=== PATIENT | female | born 1960 | race Caucasian/White ===

== ENCOUNTER → 2016-12-26 | Outpatient (CLI) | payer OTHER ==
[~2016-12-26] MED LIST: HYDROCODONE-AP1 EAC6 PO; IBUPROFEN 200200 M1 PO; LEVOXYL75 MCG PO; MACRODANTIN50 M1 PO; MULTIVITAMINS PO; PROTONIX40 M2 PO; TOPROL XL50 MG PO; VAGIFEM10 MCG VG; VENTOLIN HFA 1818 GM INH; VICODIN 5-3001 EACH PO
== END ==
LOC: RAD 01:03
DX: Z12.31 Encounter for screening mammogram for malignant neoplasm of breast (principal)

== ENCOUNTER 2017-04-18 11:39 | Emergency (ER) | payer OTHER ==
[~2017-04-18] VITALS: Ht 165.1 cm; Wt 78.0 kg
--- NOTE | ~2017-04-18 | EKG ---
[place] [address] [facility] [place] [address] ELECTROCARDIOGRAM REPORT Name: TRINA DEAN [id number] Admission: 04/18/17 Attend Phys: Discharge: 04/18/17 Date of : 56 Report #: [id number] THIS REPORT FOR: //name// [facility] ED Test Date: 2017-04-18 Test Time: 11:46:45 Pat Name: TRINA DEAN Department: Room: Gender: F Corporate Consultant: : 1960 Requested By: Xiomara Brady Order Number: [id number] MD: Edwin Youngblood Measurements Intervals [place] Rate: 84 P: 19 [place]: 167 QRS: 9 QRSD: 94 T: 4 QT: 376 QTc: 445 Interpretive Statements Sinus rhythm Nonspecific ST segment abnormality Compared to ECG 04/25/2014 08:42:15 Sinus bradycardia no longer present Electronically Signed On 04-20-2017 15:11:46 RETREAD OPERATOR by Edwin Youngblood [email or web address] <ELECTRONICALLY SIGNED> By: Edwin Youngblood MD, [facility] 04/20/17 1511 [id number] [id number] Edwin Youngblood MD, FACC /EPI
[~2017-04-18 11:39] MED LIST changes: +VAGIFEM10 MCG VAG; -VAGIFEM10 MCG VG
[2017-04-18 12:12] LABS: ABSOLUTE NEUTROPHILS 3.8 thou/uL (1.4-8.2); BASOPHILS 0.6 % (0.0-2.0); EOSINOPHILS 0.7 % (0.0-3.0); HEMATOCRIT 36.8 % (37.0-47.0); HEMOGLOBIN 12.3 gm/dL (12.0-15.0); LYMPHOCYTES 39.2 % (24.0-44.0); MCH 27.4 pg (26.0-34.0); MCHC 33.5 g/dL (28.0-37.0); MCV 81.9 fL (80.0-100.0); MONOCYTES 7.3 % (1.0-8.0); PLATELET COUNT 262 thou/uL (150-400); POLYS 52.2 % (36.0-66.0); RBC 4.49 mil/uL (4.20-5.00); RDW 14.4 % (10.5-14.5); WBC 7.3 thou/uL (4.0-11.0)
[2017-04-18 12:20] LABS: ANION GAP 6 mmol/L (7-16); BUN 26 mg/dL (7-18); CALCIUM 9.5 mg/dL (8.5-10.1); CHLORIDE 106 mmol/L (98-107); CO2 28 mmol/L (21-32); CREATININE 0.8 mg/dL (0.6-1.0); GLUCOSE 102 mg/dL (74-106); SODIUM 140 mmol/L (136-145)
[2017-04-18 12:28] LABS: ALBUMIN 4.2 g/dL (3.4-5.0); DIRECT BILIRUBIN < 0.1 mg/dL (<0.1-0.3); LIPASE 196 U/L (73-393); SGOT 22 U/L (15-37); SGPT 38 U/L (30-65); TOTAL BILIRUBIN 0.2 mg/dL (<0.1-1.0); TOTAL PROTEIN 7.1 g/dL (6.4-8.2); TROPONIN-I < 0.04 ng/mL (<0.06)
[2017-04-18] MEDS ORDERED: ACCUPRIL10 MG PO (13:42)
[2017-04-18 15:40] VITALS: BP 172/92
[2017-05-01] MEDS ORDERED: NEXIUM20 MG PO (15:59)
[2017-05-01] MEDS ORDERED: CARAFATE 1 GM TA1 G1 PO (16:00)
[2017-05-01] MEDS ORDERED: PROAIR HFA8.5 GM INH (16:00)
== END 2017-04-18 15:41 | disposition home or self-care (01) ==
LOC: ER 11:39
PROVIDERS: Emergency Medicine
DX: R07.9 Chest pain, unspecified (principal); I10 Essential (primary) hypertension; K21.9 Gastro-esophageal reflux disease without esophagitis; Z90.49 Acquired absence of other specified parts of digestive tract; Z90.710 Acquired absence of both cervix and uterus; J45.909 Unspecified asthma, uncomplicated; Z88.1 Allergy status to other antibiotic agents; Z88.5 Allergy status to narcotic agent

== ENCOUNTER → 2017-05-09 | Outpatient (CLI) | payer OTHER ==
[~2017-05-09] VITALS: Ht 165.1 cm; Wt 76.7 kg
[~2017-05-09] MED LIST changes: +ACCUPRIL10 MG PO; +CARAFATE 1 GM TA1 G1 PO; +NEXIUM20 MG PO; +PROAIR HFA8.5 GM INH
--- NOTE | ~2017-05-09 | P ---
[facility] [place] [address] PROCEDURE REPORT Name: TRINA DEAN [facility] #: [facility] [id number] Admission: 05/09/17 Attend Phys: Bryant Dorantes Discharge: Date of : 56 Report #: [id number] THIS REPORT FOR: //name// CC: Bryant Montoya DO DATE OF SERVICE: 05/09/2017 PROCEDURE PERFORMED: Upper endoscopy with biopsies and esophageal dilation. HISTORY OF PRESENT ILLNESS: The patient is a 56-year-old female with a history of gastroesophageal reflux disease, intermittent dysphagia, recently with increased left-sided chest pain to the point where she was evaluated in the emergency room. Cardiac workup was negative. I reviewed the chest x-ray, which was normal. The patient stated she has a hiatal hernia, but there was no mentioned of hiatal hernia on chest x-ray report and previous CT in 2016 showed no evidence of a hiatal hernia. Previously, she was on Dexilant, more recently, but was not able to afford this, then later switched to Protonix. Currently, she is on Nexium 20 mg a day as well as Carafate with some mild improvement in her symptoms. Plan is for upper endoscopy. PROCEDURE: The risks and benefits of the procedure were explained to the patient, those risks including, but not limited to bleeding, perforation, and the risk of sedation. She understood these risks and gave informed consent. Sedation was given using propofol and ketamine per anesthesia. Next, using a standard [employer] upper endoscope, the scope was placed in the patient's mouth and advanced under direct vision through the esophagus, stomach, and into the second portion of the duodenum. The esophagus was normal throughout. The GE junction was normal. There were multiple small fundic gland type polyps in the stomach. Biopsies were obtained. On retroflexion, a tiny hiatal hernia was seen, but no significant hiatal hernia. The gastric distal body and antrum were normal. The pylorus was normal and patent. The duodenal bulb, first, and second portion were all normal. The scope was then brought back up into the patient's stomach and a Savary guidewire was inserted through the scope, leaving the guidewire in place as the scope was then withdrawn. Next, a 48[place] Savary dilation of the esophagus was performed without difficulty. The wire and dilator were removed. The scope was reintroduced into the patient's stomach. There was no evidence of mucosal tear after dilation. The scope was then withdrawn and the procedure terminated. The patient tolerated the procedure well. IMPRESSION: 1. Gastric polyps. 2. Tiny hiatal hernia. 3. Otherwise, normal upper endoscopy. [address] [address] PROCEDURE REPORT Name: JERMAINETRINA LEE ANN Room #: REG DAMI Aguilar#: [id number] Admission: 05/09/17 Attend Phys: Bryant Dorantes Discharge: Date of : 56 Report #: [id number] RECOMMENDATIONS: 1. Await biopsy results. 2. Observe the patient post-dilation. 3. We will increase Nexium to 40 mg per day, may consider b.i.d. dosing as well. Thank you for allowing me to participate in her care. <ELECTRONICALLY SIGNED> By: Bryant Rosario MD 05/19/17 0922 [id number] Bryant Rosario MD /nt
--- NOTE | ~2017-05-09 | S ---
[facility] [employer] [place] [address] SURGICAL PATH RPT PROCEDURE Name: TRINA MAK Room #: REG [facility]..#: [id number] Admission: 05/09/17 Date of : 56 Discharge: Report #: [id number] Path Case #: [id number] PATHOLOGY REPORT COLLECTION DATE: 05/09/2017 RECEIVED DATE: 05/09/2017 SUBMITTING PHYS: Dr. Bryant Rosario OTHER PHYS: Dr. Juan M Montoya SPECIMEN(S) RECEIVED: A.Bx of gastric polyp x2 * * * * * * * * * * * * FINAL DIAGNOSIS: Polyp, gastric polyp, endoscopic biopsy: - Compatible with fundic gland polyps. - Negative for dysplasia. (IUV:pit; 05/12/2017) PATHOLOGIST: Nancy Ko M.D. REPORT ELECTRONICALLY SIGNED BY: Nancy Ko M.D. DATE/TIME: 05/12/2017 14:46 * * * * * * * * * * * * GROSS PATHOLOGY: Received in formalin labeled "Trina Mak, biopsy of gastric polyp," are four segments of infante soft tissue measuring 0.9 x 0.8 x 0.1 cm in aggregate dimensions and ranging from 0.2 to 0.5 cm in maximum dimension. The specimen is submitted entirely in cassette A1. (CAA; 05/09/2017) CLINICAL HISTORY: Left chest pain, gastric polyps INITIAL CPT CODE(S): A; 96828 Professional services performed by [facility] at [facility] [address] [place] [address] Technical services performed by [facility] at [address] [place] [address], [address] [address]. [facility] [address] [place] [address] SURGICAL PATH RPT PROCEDURE Name: TRINA MAK Room #: REG DAMI Aguilar#: [id number] Admission: 05/09/17 Date of : 56 Discharge: Report #: [id number] Path Case #: [id number] [facility] [address] [place] [id number] PHONE: [phone] DIRECTOR: Corby Wray M.D. * * * END OF REPORT * * *
== END | disposition home or self-care (01) ==
LOC: GI 06:47
DX: K31.7 Polyp of stomach and duodenum (principal); R13.19 Other dysphagia; K44.9 Diaphragmatic hernia without obstruction or gangrene; I10 Essential (primary) hypertension; E78.00 Pure hypercholesterolemia, unspecified; J45.909 Unspecified asthma, uncomplicated; E03.9 Hypothyroidism, unspecified; Z85.828 Personal history of other malignant neoplasm of skin; Z98.890 Other specified postprocedural states; Z90.49 Acquired absence of other specified parts of digestive tract; Z90.710 Acquired absence of both cervix and uterus; Z88.8 Allergy status to other drugs, medicaments and biological substances; Z79.899 Other long term (current) drug therapy
CPT/HCPCS: 62110; 62900

== ENCOUNTER → 2017-12-11 | Outpatient (CLI) | payer OTHER | LOC: RAD 01:33 | DX: Z12.31 Encounter for screening mammogram for malignant neoplasm of breast (principal) ==

== ENCOUNTER → 2018-12-14 | Outpatient (CLI) | payer OTHER ==
[~2018-12-14] MED LIST changes: +VITAMINC500 PO
== END ==
LOC: RAD 01:49
DX: Z12.31 Encounter for screening mammogram for malignant neoplasm of breast (principal)

== ENCOUNTER → 2019-01-04 | Outpatient (CLI) | payer OTHER | LOC: ULTRA 07:22 | DX: N20.0 Calculus of kidney (principal); N26.1 Atrophy of kidney (terminal); N28.9 Disorder of kidney and ureter, unspecified ==

== ENCOUNTER → 2019-02-05 | Outpatient (CLI) | payer OTHER | LOC: RAD 08:42 | DX: S93.401A Sprain of unspecified ligament of right ankle, initial encounter (principal); Z88.8 Allergy status to other drugs, medicaments and biological substances; X58.XXXA Exposure to other specified factors, initial encounter; Y93.89 Activity, other specified; Y92.89 Other specified places as the place of occurrence of the external cause; Y99.8 Other external cause status ==

== ENCOUNTER → 2019-02-15 | Outpatient (CLI) | payer OTHER | LOC: MRI 13:56 | DX: S93.492A Sprain of other ligament of left ankle, initial encounter (principal); M76.62 Achilles tendinitis, left leg; M25.472 Effusion, left ankle; X58.XXXA Exposure to other specified factors, initial encounter; Y93.89 Activity, other specified; Y92.89 Other specified places as the place of occurrence of the external cause; Y99.8 Other external cause status ==

== ENCOUNTER → 2019-12-23 | Outpatient (CLI) | payer OTHER | LOC: RAD 08:06 | PROVIDERS: ATTEND Obstetrics & Gynecology | DX: Z12.31 Encounter for screening mammogram for malignant neoplasm of breast (principal) ==

== ENCOUNTER → 2020-01-05 | Outpatient (CLI) | payer OTHER ==
[2020-01-05 08:27] LABS: ABSOLUTE NEUTROPHILS 4.3 thou/uL (1.4-8.2); BASOPHILS 0.6 % (0.0-2.0); EOSINOPHILS 0.4 % (0.0-3.0); HEMATOCRIT 39.2 % (37.0-47.0); LYMPHOCYTES 32.9 % (24.0-44.0); MCH 27.3 pg (26.0-34.0); MCV 82.5 fL (80.0-100.0); MONOCYTES 6.1 % (1.0-8.0); PLATELET COUNT 308 thou/uL (150-400); RBC 4.75 mil/uL (4.20-5.00); RDW 14.1 % (10.5-14.5); WBC 7.2 thou/uL (4.0-11.0)
[2020-01-05 08:51] LABS: ALBUMIN 4.4 g/dL (3.4-5.0); ANION GAP 6 mmol/L (7-16); BUN 25 mg/dL (7-18); CALCIUM 9.6 mg/dL (8.5-10.1); CHLORIDE 104 mmol/L (98-107); CHOLESTEROL 263 mg/dL (<200); CO2 30 mmol/L (21-32); CREATININE 0.9 mg/dL (0.6-1.0); GLUCOSE 107 mg/dL (74-106); HDL CHOLESTEROL 68 mg/dL (>40); LDL CHOLESTEROL 181 mg/dL (<100); POTASSIUM 4.5 mmol/L (3.5-5.1); SGOT 18 U/L (15-37); SGPT 37 U/L (30-65); SODIUM 140 mmol/L (136-145); TC:HDL 3.9 Ratio (Not establshd); TOTAL BILIRUBIN 0.3 mg/dL (0.2-1.0); TOTAL PROTEIN 7.5 g/dL (6.4-8.2); TRIGLYCERIDE 70 mg/dL (<150); VLDL 14 mg/dL (<40)
== END ==
LOC: LAB 07:12
PROVIDERS: ATTEND Nurse Practitioner
DX: Z00.00 Encounter for general adult medical examination without abnormal findings (principal); Z13.220 Encounter for screening for lipoid disorders

== ENCOUNTER → 2020-12-11 | Outpatient (CLI) | payer OTHER | LOC: BC 08:07 | PROVIDERS: ATTEND Obstetrics & Gynecology | DX: Z12.31 Encounter for screening mammogram for malignant neoplasm of breast (principal) ==

== ENCOUNTER → 2021-02-08 | Outpatient (CLI) | payer OTHER ==
[2021-02-08 08:41] LABS: ABSOLUTE NEUTROPHILS 11.9 thou/uL (1.4-8.2); BASOPHILS 0.2 % (0.0-2.0); EOSINOPHILS 0.1 % (0.0-3.0); HEMATOCRIT 39.8 % (37.0-47.0); HEMOGLOBIN 12.5 gm/dL (12.0-15.0); LYMPHOCYTES 14.9 % (24.0-44.0); MCH 25.9 pg (26.0-34.0); MCHC 31.4 g/dL (28.0-37.0); MCV 82.4 fL (80.0-100.0); MONOCYTES 5.5 % (1.0-8.0); PLATELET COUNT 447 thou/uL (150-400); POLYS 79.3 % (36.0-66.0); RBC 4.83 mil/uL (4.20-5.00)
[2021-02-08 09:05] LABS: ANION GAP 9 mmol/L (7-16); BUN 27 mg/dL (7-18); CALCIUM 9.1 mg/dL (8.5-10.1); CHLORIDE 101 mmol/L (98-107); CHOLESTEROL 248 mg/dL (<200); CO2 30 mmol/L (21-32); CREATININE 0.8 mg/dL (0.6-1.0); GLUCOSE 107 mg/dL (74-106); HDL CHOLESTEROL 69 mg/dL (>40); LDL CHOLESTEROL 163 mg/dL (<100); POTASSIUM 3.8 mmol/L (3.5-5.1); SGOT 20 U/L (15-37); SGPT 42 U/L (30-65); SODIUM 140 mmol/L (136-145); TC:HDL 3.6 Ratio (Not establshd); TOTAL BILIRUBIN 0.2 mg/dL (0.2-1.0); TOTAL PROTEIN 7.3 g/dL (6.4-8.2); TRIGLYCERIDE 83 mg/dL (<150); VLDL 17 mg/dL (<40)
== END ==
LOC: LAB 08:01
PROVIDERS: ATTEND Nurse Practitioner
DX: Z00.00 Encounter for general adult medical examination without abnormal findings (principal); E78.2 Mixed hyperlipidemia; E03.8 Other specified hypothyroidism